=== PATIENT | male | born 1950 | race Caucasian/White ===

== ENCOUNTER → 2021-05-12 09:39 | Outpatient (CLI) | payer OTHER, SELFPAY ==
--- NOTE | 2021-05-12 | DI.ECHO.S_ITS ---
[place] [facility]---------+ [facility] +---------+ : : [address] : [address] [place] : : : : [id number] : : : : Phone: [phone]+ Echocardiogram Report + + :Name: YUDELKA YO Study Date: 05/12/2021 Height: 73 in : :[facility] ReadingLocation: Weight: 313 lb : : Gender: Male BSA: 2.6 m2 : :: 1950 Age: 71 yrs BP: 150/103 mmHg: :Reason For Study: Encounter for therapeutic drug level : :monitoring : :Ordering Physician: ANJU, : :KRISTEN Performed By: Rashawn Venegas : :Referring: KRISTEN RENE : + + Interpretation Summary Technically difficult study limiting visualization of the LV and the valves. 1) Normal left ventricular size with severely reduced systolic function (EF 25-30%). 2) There is severe global hypokinesis of the left ventricle. There is a significant dyssynchronous contraction pattern due to the paced rhythm. 3) The right ventricle is mild to moderately dilated with mildly to moderately reduced function. 4) There is moderate mitral regurgitation. 5) Aortic valve assessment is suboptimal but severe aortic stenosis may be present (valve area 0.9cm2, severity ratio 0.24, mean gradient 18mmHg). 6) There is mild aortic regurgitation. 7) The IVC is dilated (diameter is greater than 2.1 cm) and it collapses less than 50% with a sniff. This suggests a high right atrial pressure of 15 mm Hg. 8) Compared to the Echo done 01/18/2020, LVEF has decreased from 45-50% to 25- 30% on this study and severe aortic stenosis may be present on this study. Procedure: A two-dimensional transthoracic echocardiogram with color flow and Doppler was performed. The study quality was technically difficult. Overall poor image quality. Comparison is made with the echocardiogram of 04/18/2020. A contrast injection of Definity was performed to improve assessment of LV function. The patient has a paced rhythm. Left Ventricle: The left ventricle is normal in size. Significant beat - to beat variation of EF. The ejection fraction is estimated to be 25-30%. There is a significant dyssynchronous contraction pattern due to the paced rhythm. There is severe global hypokinesis of the left ventricle. Diastolic function could not be accurately assessed due to unobtainable data. Right Ventricle: There is a pacemaker lead in the right ventricle. The right ventricle is mild to moderately dilated. Right ventricular systolic function is mild to moderately reduced. Atria: The left atrium is severely dilated. There is a catheter/pacemaker lead seen in the right atrium. The right atrium is mild to moderately dilated. There is no Doppler evidence for an interatrial shunt. Mitral Valve: There is mild mitral annular calcification. The mitral valve leaflets appear borderline thickened, but open well. There is moderate mitral regurgitation. Aortic Valve: The aortic valve is heavily calcified. There is moderately reduced leaflet mobility. Hemodynamically significant valvular aortic stenosis cannot be excluded. The peak aortic velocity is 2.65 m/sec. The aortic valve mean gradient is 18 mmHg. There is mild aortic regurgitation. Tricuspid Valve: The tricuspid valve is normal. There is trace tricuspid regurgitation. Pulmonary artery pressures cannot be estimated because of the lack of a measurable TR jet velocity but the IVC suggests a CVP of around 15 mmHg. Pulmonic Valve: The pulmonic valve is not well seen, but is grossly normal. There is mild pulmonic regurgitation. Great Vessels: The aortic root is normal size. The ascending aorta is mildly enlarged. The aortic arch is normal in size. The IVC is dilated (diameter is greater than 2.1 cm) and it collapses less than 50% with a sniff. This suggests a high right atrial pressure of 15 mm Hg. Pericardium/ Pleura There is no pericardial effusion. There is an anterior echo-free space consistent with a fat pad. There is no pleural effusion. MMode/2D Measurements & Calculations LVOT diam: 2.1 cm LA A2 area: 28.1 cm2 Ao root diam: 3.2 cm LA A4 area: 37.5 cm2 asc Aorta Diam: 4.0 cm LA length (vol): 6.1 cm Ao Arch Diam (Prox Trans): 3.0 cm LA vol: 146.3 ml LA vol index: 56.3 ml/m2 RA long axis: 6.1 cm TAPSE: 1.3 cm IVC diam: 2.6 cm LVLs ap4: 8.6 cm LVLd ap2: 8.3 cm LVLs ap2: 7.9 cm Doppler Measurements & Calculations Ao V2 max: 265.0 cm/sec LVOT Max Jose: 72.0 cm/sec Ao V2 mean: 204.2 cm/sec LV V1 max P.2 mmHg Ao max P.6 mmHg LV V1 VTI: 13.2 cm Ao mean P.9 mmHg JONES(I,D): 0.81 cm2 Ao V2 VTI: 56.3 cm JONES(V,D): 0.94 cm2 sev ratio: 0.24 JONES indexed to BSA (cm^2/m^2): 0.31 SV(LVOT): 45.8 ml Reading Physician:01:24 PM
== END ==
PROVIDERS: Referring Provider Nurse Practitioner Family; Visit Provider Nurse Practitioner Family
DX: I08.0 Rheumatic disorders of both mitral and aortic valves (principal); I77.89 Other specified disorders of arteries and arterioles; Z51.81 Encounter for therapeutic drug level monitoring; Z95.0 Presence of cardiac pacemaker
CPT/HCPCS: 93306; Q9957